=== PATIENT | male | born 1995 | race Two or more races ===

== ENCOUNTER 2019-08-09 18:33 | Emergency (ER) | payer OTHER ==
[~2019-08-09] VITALS: Ht 182.9 cm; Wt 111.6 kg
[2019-08-09 18:40] VITALS: BP 119/81
--- NOTE | 2019-08-09 18:40 | NUR ---
ARRIVAL PATIENT PRESENTS WITH COMPLAINTS OF LEFT "GROIN AND STOMACH PAIN" SP FALL FROM STANDING AT 11AM. PATIENT ALSO REPORTS LOWER BACK PAIN. DENIES HEAD INJURY. PATIENT IS AMBULATORY WITH STEADY GAIT. BREATHING EVEN, UNLABORED. NO SIGNS OF DISTRESS NOTED. MD ENZO NOTIFIED.
[2019-08-09] MEDS ORDERED: TORADOL IM STA (19:13)
--- NOTE | 2019-08-09 19:18 | ER.PDOC ---
General Chief Complaint: Abdomen Pain Stated Complaint: LOWER ABD PAIN,BACK/LEG PAIN Time seen by MD: 19:16 Source: patient Exam Limitations: no limitations History of Present Illness Initial Comments Left hip and lower back pain S/P fall this morning at work. He did not hit his head. Occurred: this morning Where: work Severity: moderate Injuries/Pain Location: back, lower extremity Context: Tripped Loss of Consciousness: No Loss of Consciousness Associated Symptoms: denies symptoms Past Medical History Medical History: no pertinent history Surgical History: no surgical history LMP (females 10-50): N/A Not applicalbe Social History Smoking: less than 1 pack/day Alcohol Use: occassionally Review of Systems Constitutional: no symptoms reported Respiratory: no symptoms reported Cardiovascular: no symptoms reported Gastrointestinal: no symptoms reported Musculoskeletal: see HPI All Other Systems: Reviewed and Negative Physical Exam General Appearance: No Apparent Distress, WD/WN Head: No Evidence of Injury Ears, Nose, Mouth, Throat: Hearing Grossly Normal, No Evidence of ENT Injury, No Dental Injury Neck: Non-Tender, Normal Alignment, Nexus criteria neg, Normal Inspection Cardiovascular/Respiratory: Regular Rate, Rhythm, No M/R/G, Normal Peripheral Pulses, No JVD, Normal Breath Sounds, No Respiratory Distress Gastrointestinal: Normal Bowel Sounds, No Organomegaly, No Pulsatile Mass, Non Tender, Soft Back: Vertebral Tenderness (L spine) Extremities: Pain With Movement (left hip) 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, No Motor/Sensory Deficits, Alert, Normal Mood/Affect, Oriented x 3 Skin: Normal Color, Warm/Dry Trina Coma Score Best Eye Response: (4) Open Spontaneously Best Verbal Response: (5) Oriented Best Motor Response: (6) Obeys Commands Results/Orders Results/Orders Orders - YULIANA GIRALDO MD Ct Pelvis Wo Iv Contrast (08/09/19 19:13) Xr Lspine 2-3v (08/09/19 19:13) Ketorolac Tromethamine (Toradol) (08/09/19 19:13) Ketorolac Tromethamine (Toradol) (08/09/19 19:39) Vital Signs Date Time Temp Pulse Resp B/P (MAP) Pulse Ox O2 Delivery O2 Flow Rate FiO2 08/09/19 18:40 98.1 79 18 119/81 (94) 98 Room Air 08/09/19 18:40 98.1 79 18 98 Room Air 08/09/19 18:40 98.1 79 18 Administered Medications Medications (Trade) Dose Ordered Sig/Amrit Route PRN Reason Start Time Stop Time Status Last Admin Dose Admin Ketorolac Tromethamine (Toradol) 60 mg STAT STAT IM 08/09/19 19:13 08/09/19 19:16 DC 08/09/19 19:54 60 MG EKG/XRAY/CT/US XRAY Comments: Normal L spine CT Comments: Normal Pelvis Departure Time of Disposition: 20:16 Disposition: 01 HOME, SELF-CARE Impression: Primary Impression: Multiple contusions Condition: Stable Referrals: PCP,UNKNOWN (PCP) PRIMARY CARE PROVIDER Additional Instructions: Continue Ibuprofen at home Flexeril Rest home tomorrow and resume work on 08/11/19 F/U with your PCP in 2-3 days Return to ED if worsening Duration or Time Spent with Pa: 45 mins ENZO,YULIANA Melgar MD Aug 09, 2019 19:18
[2019-08-09 19:30] VITALS: BP 125/79
[2019-08-09] MEDS ORDERED: TORADOL ONE (19:39)
--- NOTE | 2019-08-09 19:40 | NUR ---
RADIOLOGY PATIENT IS BEING TRANSPORTED TO RADIOLOGY VIA WHEELCHAIR. NO SIGNS OF DISTRESS NOTED.
--- NOTE | 2019-08-09 19:53 | NUR ---
RADIOLOGY PATIENT HAS RETURNED FROM RADIOLOGY. NO SIGNS OF DISTRESS NOTED.
--- NOTE | 2019-08-09 20:00 | DIREP ---
PROCEDURE:XRAY SPINE LUMBAR 2-3 VWS COMPARISON:None. INDICATIONS:Pain TECHNIQUE:AP, lateral, and coned down lateral views of the lumbar spine are provided. FINDINGS: ALIGNMENT:Normal. 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 No fracture. DISK SPACES:Normal. SPONDYLOLISTHESIS:None. SACROILIAC JOINTS:Normal. OTHER:Normal. CONCLUSION:Normal alignment. No fracture. No significant disc degeneration. Dictated by: Trey Enriquez MD on 08/09/2019 at 07:57 PM
--- NOTE | 2019-08-09 20:09 | DIREP ---
PROCEDURE:CT PELVIS W/O COMPARISON:None. INDICATIONS:Left hip/pelvic injury S/P fall TECHNIQUE:Axial images were created through the pelvis without intravenous contrast material. No oral contrast was administered. Sagittal and coronal reconstructions were performed from source images. FINDINGS: AORTA/VASCULAR: No aneurysm. ABDOMINAL WALL: Normal. No mass or hernia. URINARY BLADDER: Inherently limited evaluation of the wall; unremarkable for level of distension. PELVIS: Prostatic tissue present. No adenopathy. BONES: No bony lesion or fracture. OTHER: No free air or fluid. CONCLUSION: 1. No pelvic fracture identified. Dictated by: Carole Lee MD on 08/09/2019 at 08:05 PM
[2019-08-09 20:30] VITALS: BP 126/86
== END 2019-08-09 20:32 | disposition home or self-care (01) ==
LOC: ER 18:33
DX: S70.02XA Contusion of left hip, initial encounter (principal); S30.0XXA Contusion of lower back and pelvis, initial encounter; F17.210 Nicotine dependence, cigarettes, uncomplicated; W01.0XXA Fall on same level from slipping, tripping and stumbling without subsequent striking against object, initial encounter; Y93.89 Activity, other specified; Y92.69 Other specified industrial and construction area as the place of occurrence of the external cause; Y99.0 Civilian activity done for income or pay
CPT/HCPCS: 72100; 72192; 96372; 99284; J1885

== ENCOUNTER 2019-08-12 16:30 | Emergency (ER) | payer OTHER ==
[~2019-08-12] VITALS: Ht 180.3 cm; Wt 111.1 kg
[2019-08-12 16:35] VITALS: BP 156/72
[2019-08-12] MEDS ORDERED: BENTYL IM STA (17:05)
--- NOTE | 2019-08-12 17:05 | ER.PDOC ---
General Chief Complaint: Abdomen Pain Stated Complaint: ABD PAIN, FEVERISH, Time seen by MD: 16:50 Source: patient Exam Limitations: no limitations History of Present Illness Initial Comments Pt c/o diffuse abd pain, sharp, started in center af abdomen and has spread out. Vomited curran pain became worse, has some nausea. [place] feverish at home last night, no temp taken, no fever now. Radiation: no radiation Exacerbated by: nothing Relieved By: nothing Vital Signs First Vital Signs Date Time Temp Pulse Resp B/P (MAP) Pulse Ox O2 Delivery O2 Flow Rate FiO2 08/12/19 16:35 98.8 67 18 100 Room Air 08/12/19 16:35 156/72 (100) Last Vital Signs Date Time Temp Pulse Resp B/P (MAP) Pulse Ox O2 Delivery O2 Flow Rate FiO2 08/12/19 16:35 98.8 67 18 156/72 (100) 100 Room Air Past Medical History Medical History: no pertinent history Surgical History: no surgical history Social History Smoking: less than 1 pack/day Alcohol Use: occassionally Drug Use: none Constitutional: no symptoms reported EENTM: nose congestion (2 days) Respiratory: cough (2 days) Cardiovascular: no symptoms reported Gastrointestinal: see HPI, abdominal pain; denies constipated; nausea, vomiting Genitourinary: no symptoms reported Musculoskeletal: no symptoms reported Skin: no symptoms reported All Other Systems: Reviewed and Negative Physical Exam General Appearance: No Apparent Distress HEENT: PERRL/EOMI, Pharynx Normal, Other (rhinorrhea) Neck: Non-Tender, Full Range of Motion Respiratory: chest non-tender, lungs clear, normal breath sounds, no respira tory distress, no accessory muscle use Cardiovascular: Normal Peripheral Pulses, Regular Rate, Rhythm, No Edema, No Gallop, No JVD, No Murmur Gastrointestinal: Normal Bowel Sounds Back: Normal Inspection, No CVA Tenderness Extremities: Normal Range of Motion, Non-Tender Neurologic/Psychiatric: No Motor/Sensory Deficits, Alert, Oriented x 3 Skin: Normal Color Results/Orders Results/Orders Orders - CARO NORRIS DO Cbc With Auto Diff (08/12/19 17:05) Comprehensive Metabolic Panel (08/12/19 17:05) Amylase (08/12/19 17:05) Lipase (08/12/19 17:05) Urinalysis (08/12/19 17:05) 0.9 % Sodium Chloride (Ns 1000ml) (08/12/19 17:30) Ondansetron Hcl/Pf (Zofran 4 Mg/2 Ml Via (08/12/19 17:30) Dicyclomine Hcl (Bentyl) (08/12/19 17:05) 0.9 % Sodium Chloride (Ns 1000ml) (08/12/19 17:07) Ondansetron Hcl/Pf (Zofran 4 Mg/2 Ml Via (08/12/19 17:08) Ketorolac Tromethamine (Toradol) (08/12/19 18:00) Dicyclomine Hcl (Bentyl) (08/12/19 17:57) Ketorolac Tromethamine (Toradol) (08/12/19 17:58) Dicyclomine Hcl (Bentyl) (08/12/19 17:58) Ct Abd/Pel With Iv Contrast (08/12/19 18:04) Vital Signs Date Time Temp Pulse Resp B/P (MAP) Pulse Ox O2 Delivery O2 Flow Rate FiO2 08/12/19 16:35 98.8 67 18 156/72 (100) 100 Room Air 08/12/19 16:35 98.8 67 18 100 Room Air Administered Medications Medications (Trade) Dose Ordered Sig/Amirt Route PRN Reason Start Time Stop Time Status Last Admin Dose Admin Dicyclomine HCl (Bentyl) 20 mg STAT STAT PO 08/12/19 17:57 08/12/19 17:59 DC 08/12/19 18:05 20 MG Ketorolac Tromethamine (Toradol) 30 mg OT PRN IV PAIN 4 - 6 08/12/19 18:00 09/11/19 17:59 08/12/19 18:05 30 MG Ondansetron HCl (Zofran 4 Mg/2 ml Vial) 4 mg OT PRN IV NAUSEA / VOMITING 08/12/19 17:30 09/11/19 17:29 08/12/19 17:20 4 MG Sodium Chloride 1,000 ml @ 0 mls/hr Q0M ONCE IV 08/12/19 17:30 08/12/19 17:31 DC 08/12/19 17:20 1,000 MLS/HR Laboratory Tests Test 08/12/19 16:42 08/12/19 17:11 Urine Collection Type UNKNOWN Urine Color YELLOW (YELLOW) Urine Appearance CLEAR (CLEAR) Urine Bilirubin NEGATIVE MG/DL (NEGATIVE) Urine Ketones NEGATIVE (NEGATIVE) Urine Specific [place] 1.000 (1.005-1.035) Urine pH 6 (5.0-6.0) Urine Protein 30 mg/dL (NEGATIVE) H Urine Urobilinogen NORMAL (NEGATIVE) Urine Nitrate NEGATIVE (NEGATAIVE) Urine Leukocyte Esterase NEGATIVE (NEGATIVE) Urine Blood NEGATIVE (NEGATIVE) Urine RBC NONE SEEN RBC/HPF (NONE Urine WBC 0-2 WBC/HPF (0-2) Urine Squamous Epithelial Cells RARE #/HPF (FEW) Urine Bacteria NONE SEEN (NONE SEEN) Urine Glucose NORMAL (NEGATIVE) White Blood Count 9.6 10^3/uL (4.5-11.0) Red Blood Count 4.36 10^6/uL (4.50-5.90) L Hemoglobin 13.7 g/dL (13.9-16.3) L Hematocrit 39.2 % (37.0-53.0) Mean Corpuscular Volume 89.9 fL (78-100) Mean Corpuscular Hemoglobin 31.4 pg (26-34) Mean Corpuscular Hemoglobin Concent 34.9 g/dL (33-37) Red Cell Distribution Width 11.4 % (11.5-14.5) L Platelet Count 219 10^3/uL (150-400) Mean Platelet Volume 9.8 fL (7.8-11.0) Neutrophils (%) (Auto) 64.5 % (41.0-85.0) Lymphocytes (%) (Auto) 23.6 % (24.0-44.0) L Monocytes (%) (Auto) 10.6 % (5.0-12.0) Neutrophils # (Auto) 6.2 10^3/uL (1.8-7.7) Lymphocytes # (Auto) 2.3 10^3/uL (1.0-4.8) Monocytes # (Auto) 1.0 10^3/uL (0.3-0.8) H Absolute Immature Granulocyte (auto 0.01 10^3 u/L (0-2) Immature Granulocytes % 0.10 % (0.00-0.50) Eosinophils % 0.9 % (0.0-5.0) Basophils % 0.3 % (0.0-0.2) H Basophils # 0.0 10^3/uL (0.0-0.1) Eosinophil Count 0.1 10^3/uL (0.0-0.2) Sodium Level 142 mmol/L (132-145) Potassium Level 3.1 mmol/L (3.6-5.2) L Chloride Level 105.0 mmol/L (96-109) Carbon Dioxide Level 25.1 mmol/L (20.0-32) Anion Gap 15.0 Blood Urea Nitrogen 9 mg/dL (7-18) Creatinine 1.42 mg/dL (0.59-1.40) H Estimated GFR () 74.1 (>/=60) BUN/Creatinine Ratio 6.0 Glucose Level 84 mg/dL (70-110) Calcium Level 8.6 mg/dL (8.4-10.5) Total Bilirubin 0.6 mg/dL (0.2-1.0) Aspartate Amino Transferase (AST) 21 U/L (0-35) Alanine Aminotransferase (ALT) 26 U/L (12-78) Alkaline Phosphatase 69 U/L (50-136) Total Protein 7.0 g/dL (6.4-8.2) Albumin 3.7 g/dL (3.4-5.0) Globulin 3.3 Amylase Level 52 U/L (25-115) Lipase 66 U/L (114-286) L Progress Progress Symptoms improved after Bentyl and Toradol. will d/c home. Unremarkable labs and imaging. PROCEDURE:CT ABDOMEN/PELVIS W/ CONTRAST COMPARISON:[facility], CT, CT PELVIS W/O, 08/09/2019, 07:38 PM. INDICATIONS:diffuse abd pain TECHNIQUE:Axial images were created through the abdomen and pelvis with non-ionic intravenous contrast material. No oral contrast was administered. Sagittal and coronal reconstructions were performed from source images. FINDINGS: LUNG BASES:No suspicious airspace consolidation or pleural effusion. Tiny sub 4 mm pleural base nodule within the right lower lobe is of questionable clinical significance in a patient of this age group. LIVER:No suspicious focal hepatic lesion. BILIARY:The gallbladder is nondistended. No radiopaque calculi. No significant intrahepatic or extrahepatic biliary ductal dilatation. PANCREAS:No suspicious pancreatic abnormality. SPLEEN:The spleen is not significantly enlarged. No focal splenic lesion identified. ADRENALS:The adrenal glands are unremarkable. URINARY TRACT:No hydronephrosis or suspicious renal lesion. AORTA/VASCULAR:No aneurysmal dilatation. RETROPERITONEUM:No suspicious retroperitoneal lymphadenopathy. BOWEL/MESENTERY:No evidence for small bowel obstruction. No gross colonic abnormality. Normal appendix. No free air. ABDOMINAL WALL:No significant hernia. PELVIC ORGANS:Urinary bladder is nondistended, limiting evaluation. The prostate is not enlarged. No free fluid within the pelvis. BONES:Mild degenerative changes of the lower lumbar spine. No acute abnormality. CONCLUSION: 1. No acute intra-abdominal abnormality. No evidence for small bowel obstruction. No gross colonic abnormality. Normal appendix. 2. Additional findings as discussed above. Dictated by: Lucas Petty M.D. On 08/12/2019 at 06:43 PM Course Duration or Total Time Spent w: 45 mins Vitals & review Data Vital Sign - Last 24 Hours 08/12/19 08/12/19 16:35 16:35 Temp 98.8 98.8 Pulse 67 67 Resp 18 18 B/P (MAP) 156/72 (100) Pulse Ox 100 100 O2 Delivery Room Air Room Air Laboratory Tests Test 08/12/19 16:42 08/12/19 17:11 Urine Collection Type UNKNOWN Urine Color YELLOW Urine Appearance CLEAR Urine Bilirubin NEGATIVE MG/DL Urine Ketones NEGATIVE Urine Specific [place] 1.000 Urine pH 6 Urine Protein 30 mg/dL Urine Urobilinogen NORMAL Urine Nitrate NEGATIVE Urine Leukocyte Esterase NEGATIVE Urine Blood NEGATIVE Urine RBC NONE SEEN RBC/HPF Urine WBC 0-2 WBC/HPF Urine Squamous Epithelial Cells RARE #/HPF Urine Bacteria NONE SEEN Urine Glucose NORMAL White Blood Count 9.6 10^3/uL Red Blood Count 4.36 10^6/uL Hemoglobin 13.7 g/dL Hematocrit 39.2 % Mean Corpuscular Volume 89.9 fL Mean Corpuscular Hemoglobin 31.4 pg Mean Corpuscular Hemoglobin Concent 34.9 g/dL Red Cell Distribution Width 11.4 % Platelet Count 219 10^3/uL Mean Platelet Volume 9.8 fL Neutrophils (%) (Auto) 64.5 % Lymphocytes (%) (Auto) 23.6 % Monocytes (%) (Auto) 10.6 % Neutrophils # (Auto) 6.2 10^3/uL Lymphocytes # (Auto) 2.3 10^3/uL Monocytes # (Auto) 1.0 10^3/uL Absolute Immature Granulocyte (auto 0.01 10^3 u/L Immature Granulocytes % 0.10 % Eosinophils % 0.9 % Basophils % 0.3 % Basophils # 0.0 10^3/uL Eosinophil Count 0.1 10^3/uL Sodium Level 142 mmol/L Potassium Level 3.1 mmol/L Chloride Level 105.0 mmol/L Carbon Dioxide Level 25.1 mmol/L Anion Gap 15.0 Blood Urea Nitrogen 9 mg/dL Creatinine 1.42 mg/dL Estimated GFR () 74.1 BUN/Creatinine Ratio 6.0 Glucose Level 84 mg/dL Calcium Level 8.6 mg/dL Total Bilirubin 0.6 mg/dL Aspartate Amino Transf (AST/SGOT) 21 U/L Alanine Aminotransferase (ALT/SGPT) 26 U/L Alkaline Phosphatase 69 U/L Total Protein 7.0 g/dL Albumin 3.7 g/dL Globulin 3.3 Amylase Level 52 U/L Lipase 66 U/L Current Medications Medications (Trade) Dose Ordered Sig/Amrit PRN Reason Start Time Stop Time Status Last Admin Ketorolac Tromethamine (Toradol) 30 mg OT PRN PAIN 4 - 6 08/12/19 18:00 09/11/19 17:59 08/12/19 18:05 Ondansetron HCl (Zofran 4 Mg/2 ml Vial) 4 mg OT PRN NAUSEA / VOMITING 08/12/19 17:30 09/11/19 17:29 08/12/19 17:20 O2 Sat by Pulse Oximetry: 100 Departure Time of Disposition: 18:59 Disposition: 01 HOME, SELF-CARE Impression: Primary Impression: Gastroenteritis Additional Impression: URI (upper respiratory infection) Condition: Stable Referrals: PCP,UNKNOWN (PCP) PRIMARY CARE PROVIDER Duration or Time Spent with Pa: 45 Problem Qualifiers Additional Impression: URI (upper respiratory infection) URI type: unspecified viral URI Qualified Codes: J06.9 - Acute upper respiratory infection, unspecified CARO NORRIS DO Aug 12, 2019 17:04
[2019-08-12] MEDS ORDERED: NS 1000ML 1,000 ML ONE (17:07)
[2019-08-12] MEDS ORDERED: ZOFRAN 4 MG/2 ML VIAL ONE (17:08)
[2019-08-12 17:21] LABS: BASOPHIL % 0.3 % (0.0-0.2); EOSINOPHIL # 0.1 10^3/uL (0.0-0.2); EOSINOPHIL % 0.9 % (0.0-5.0); HEMOGLOBIN 13.7 g/dL (13.9-16.3); LYMPHOCYTES # 2.3 10^3/uL (1.0-4.8); LYMPHOCYTES % 23.6 % (24.0-44.0); MEAN CELL HGB 31.4 pg (26-34); MEAN CELL HGB CONCENTRATION 34.9 g/dL (33-37); MEAN CORP VOLUME 89.9 fL (78-100); MEAN PLATELET VOLUME 9.8 fL (7.8-11.0); MONOCYTES % 10.6 % (5.0-12.0); NEUTROPHIL # 6.2 10^3/uL (1.8-7.7); NEUTROPHILS % 64.5 % (41.0-85.0); RED CELL DISTRIBUTION WIDTH 11.4 % (11.5-14.5); WHITE BLOOD CELL 9.6 10^3/uL (4.5-11.0)
[2019-08-12] MEDS ORDERED: ZOFRAN 4 MG/2 ML VIAL IV PRN (17:30)
[2019-08-12] MEDS ORDERED: NS 1000ML 1,000 ML IV ONE (17:30)
[2019-08-12 17:35] LABS: CALCIUM 8.6 mg/dL (8.4-10.5); CARBON DIOXIDE 25.1 mmol/L (20.0-32)
[2019-08-12 17:43] LABS: APPEARANCE,URINE CLEAR (CLEAR); BILIRUBIN,URINE NEGATIVE (NEGATIVE); UA COLOR YELLOW (YELLOW); UROBILINOGEN,URINE NORMAL (NEGATIVE)
[2019-08-12] MEDS ORDERED: BENTYL PO STA (17:57)
[2019-08-12] MEDS ORDERED: BENTYL ONE (17:58)
[2019-08-12] MEDS ORDERED: TORADOL ONE (17:58)
[2019-08-12] MEDS ORDERED: TORADOL IV PRN (18:00)
--- NOTE | 2019-08-12 18:52 | DIREP ---
PROCEDURE:CT ABDOMEN/PELVIS W/ CONTRAST COMPARISON:[facility], CT, CT PELVIS W/O, 08/09/2019, 07:38 PM. INDICATIONS:diffuse abd pain TECHNIQUE:Axial images were created through the abdomen and pelvis with non-ionic intravenous contrast material. No oral contrast was administered. Sagittal and coronal reconstructions were performed from source images. FINDINGS: LUNG BASES:No suspicious airspace consolidation or pleural effusion. Tiny sub 4 mm pleural base nodule within the right lower lobe is of questionable clinical significance in a patient of this age group. LIVER:No suspicious focal hepatic lesion. BILIARY:The gallbladder is nondistended. No radiopaque calculi. No significant intrahepatic or extrahepatic biliary ductal dilatation. PANCREAS:No suspicious pancreatic abnormality. SPLEEN:The spleen is not significantly enlarged. No focal splenic lesion identified. ADRENALS:The adrenal glands are unremarkable. URINARY TRACT:No hydronephrosis or suspicious renal lesion. AORTA/VASCULAR:No aneurysmal dilatation. RETROPERITONEUM:No suspicious retroperitoneal lymphadenopathy. BOWEL/MESENTERY:No evidence for small bowel obstruction. No gross colonic abnormality. Normal appendix. No free air. ABDOMINAL WALL:No significant hernia. PELVIC ORGANS:Urinary bladder is nondistended, limiting evaluation. The prostate is not enlarged. No free fluid within the pelvis. BONES:Mild degenerative changes of the lower lumbar spine. No acute abnormality. CONCLUSION: 1. No acute intra-abdominal abnormality. No evidence for small bowel obstruction. No gross colonic abnormality. Normal appendix. 2. Additional findings as discussed above. Dictated by: Lucas Petty M.D. On 08/12/2019 at 06:43 PM
== END 2019-08-12 19:12 | disposition home or self-care (01) ==
LOC: ER 16:30
DX: K52.9 Noninfective gastroenteritis and colitis, unspecified (principal); J06.9 Acute upper respiratory infection, unspecified; F17.210 Nicotine dependence, cigarettes, uncomplicated; Z79.899 Other long term (current) drug therapy
CPT/HCPCS: 36415; 74177; 80053; 81000; 82150; 83690; 85025; 96361; 96374; 96375; 99285; J1885; J2405; J7030; Q9967

== ENCOUNTER 2020-04-24 23:12 | Emergency (ER) | payer OTHER ==
[~2020-04-24] VITALS: Ht 182.9 cm; Wt 108.9 kg
[2020-04-24 23:43] VITALS: BP 144/90
[2020-04-25 00:27] LABS: BASOPHIL % 0.5 % (0.0-0.2); EOSINOPHIL # 0.4 10^3/uL (0.0-0.2); EOSINOPHIL % 4.9 % (0.0-5.0); LYMPHOCYTES # 3.77 10^3/uL1 (1.0-4.8); LYMPHOCYTES % 43.8 % (24.0-44.0); MEAN CORP HGB 31.9 pg (26-34); MONOCYTES # 0.6 10^3/uL (0.3-0.8); MONOCYTES % 6.9 % (5.0-12.0); NEUTROPHIL # 3.8 10^3/uL (1.8-7.7); NEUTROPHILS % 43.6 % (41.0-85.0); PLATELET COUNT 238 10^3/uL (150-400); RED CELL DISTRIBUTION WIDTH 11.4 % (11.5-14.5)
[2020-04-25 00:28] LABS: CALCIUM 9.1 mg/dL (8.4-10.5); CARBON DIOXIDE 25.5 mmol/L (20.0-32)
--- NOTE | 2020-04-25 01:00 | ER.PDOC ---
General Chief Complaint: General Complaint Stated Complaint: POSS HEAT STROKE TRAVEL OUT OF US: No Time seen by MD: 00:53 Source: patient Exam Limitations: no limitations History of Present Illness Initial Comments May a lot of heat and thinks that he is dehydrated. He drank a lot of water prior to coming here to be checked. Severity: mild Associated Symptoms: denies symptoms Allergies: Coded Allergies: No Known Allergies (Unverified , 04/24/20) Past Medical History Medical History: no pertinent history Surgical History: no surgical history Social History Alcohol Use: occassionally Drug Use: none Review of Systems Constitutional: no symptoms reported Respiratory: no symptoms reported Cardiovascular: no symptoms reported Gastrointestinal: no symptoms reported Genitourinary: no symptoms reported All Other Systems: Reviewed and Negative Physical Exam General Appearance: No Apparent Distress, WD/WN Neck: Non-Tender, Full Range of Motion, Supple, Normal Inspection Respiratory: chest non-tender, lungs clear, normal breath sounds, no respiratory distress CVS: reg rate & rhythm, no murmur, no gallop, pulses nml, nml capillary refill Gastrointestinal: Normal Bowel Sounds, No Organomegaly, No Pulsatile Mass, Non Tender Back: Normal Inspection Extremities: Normal Range of Motion 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9 pg (26-34) Mean Corpuscular Hemoglobin Concent 36.0 g/dL (33-36.5) Red Cell Distribution Width 11.4 % (11.5-14.5) L Platelet Count 238 10^3/uL (150-400) Mean Platelet Volume 9.3 fL (7.8-11.0) Neutrophils (%) (Auto) 43.6 % (41.0-85.0) Lymphocytes (%) (Auto) 43.8 % (24.0-44.0) Monocytes (%) (Auto) 6.9 % (5.0-12.0) Neutrophils # (Auto) 3.8 10^3/uL (1.8-7.7) Lymphocytes # (Auto) 3.77 10^3/uL1 (1.0-4.8) Monocytes # (Auto) 0.6 10^3/uL (0.3-0.8) Absolute Immature Granulocyte (auto 0.03 10^3 u/L (0-2) Absolute Eosinophils (auto) 0.4 10^3/uL (0.0-0.2) H Immature Granulocytes % 0.30 % (0.00-0.50) Eosinophils % 4.9 % (0.0-5.0) Basophils % 0.5 % (0.0-0.2) H Basophils # 0.0 10^3/uL (0.0-0.1) Sodium Level 137 mmol/L (132-145) Potassium Level 3.5 mmol/L (3.6-5.2) L Chloride Level 101.0 mmol/L (96-109) Carbon Dioxide Level 25.5 mmol/L (20.0-32) Glucose Level 107 mg/dL (70-110) Blood Urea Nitrogen 10 mg/dL (7-18) Creatinine 1.27 mg/dL (0.59-1.40) Calcium Level 9.1 mg/dL (8.4-10.5) Anion Gap 14.0 Estimated GFR () 83.6 (>/=60) Est GFR (CKD-EPI)(Non-Afr [place]) 69.1 (>/=60) BUN/Creatinine Ratio 7.0 Progress Progress Labs are unremarkable and he is requesting a Doctor's note because he called off work. He feels better. Departure Time of Disposition: 00:57 Disposition: 01 HOME, SELF-CARE Impression: Primary Impression: Heat exhaustion Condition: Improved Referrals: PCP,UNKNOWN (PCP) PRIMARY CARE PROVIDER Additional Instructions: Push fluids F/U with your PCP in 2-3 days Return to ED if worsening or concerns Duration or Time Spent with Pa: 30 min Problem Qualifiers Primary Impression: Heat exhaustion Encounter type: initial encounter Qualified Codes: T67.5XXA - Heat exhaustion, unspecified, initial encounter YULIANA GIRALDO MD Apr 25, 2020 00:59
[2020-04-25 01:03] VITALS: BP 138/84
== END 2020-04-25 01:03 | disposition home or self-care (01) ==
LOC: ER 23:12
DX: T67.5XXA Heat exhaustion, unspecified, initial encounter (principal); X30.XXXA Exposure to excessive natural heat, initial encounter; Y93.89 Activity, other specified; Y92.89 Other specified places as the place of occurrence of the external cause; Y99.8 Other external cause status
CPT/HCPCS: 36415; 80048; 85025; 99283